=== PATIENT | female | born 1970 | race Caucasian/White ===

== ENCOUNTER 2017-01-16 10:41 | Emergency (ER) | payer BC ==
[2017-01-16 11:02] LABS: BASOPHILS 0.4 % (0.0-2.0); EOSINOPHILS 0.7 % (0.0-6.0); HEMATOCRIT 40.3 % (36.0-48.0); LYMPHOCYTES 30.8 % (20.0-40.0); LYMPHOCYTES# 1.5 X 10^3uL (0.8-3.8); MEAN CELL VOLUME 92.4 fL (80.0-100.0); MEAN CORPUS. HGB CONCENTRATION 34.8 g/dL (32.0-36.0); MEAN CORPUSCULAR HEMOGLOBIN 32.2 pg (29.0-35.0); MEAN PLATELET VOLUME 7.8 fL (7.4-10.4); MONOCYTES# 0.3 X 10^3uL (0.2-1.0); NEUTROPHILS 62.1 % (54.0-75.0); PLATELET COUNT 206 X 10^3uL (130-440); RED BLOOD COUNT 4.36 X 10^6uL (4.20-6.10); RED CELL DISTRIBUTION WIDTH 12.2 % (11.5-14.5); WHITE BLOOD COUNT 4.8 X 10^3uL (3.9-10.7)
--- NOTE | 2017-01-16 11:12 | CT REPORT ---
HISTORY: Word finding difficulties. Stroke like symptoms. COMPARISON: None. TECHNIQUE: Axial non-contrast images obtained from skull vertex through foramen magnum. Dose reduction technique was utilized. FINDINGS: There is no significant cerebral atrophy and ventricular size are normal. There is been a prior left occipital craniotomy, with focal volume loss in the left cerebellar hemisphere. No mass, acute infarc t, or hemorrhage is demonstrated. There are no extra-axial fluid collections are visualized paranasal sinuses are unremarkable. IMPRESSION: 1. No acute infarct is demonstrated and no intracranial hemorrhage. 2. Left occipital craniotomy, with focal volume loss/resection of the lateral left cerebellar hemisph ere. Final Electronic Signature: This report was electronically signed by Pablo Felix MD on 01/16/2017 11:10 AM. rafael /
[2017-01-16 11:14] LABS: BLOOD UREA NITROGEN 15 mg/dL (7-17); CALCIUM 9.8 mg/dL (8.4-10.2); CHLORIDE 109 mmol/L (98-107); EST GLOMERULAR FILTRATION RATE > 60 mL/min; GLUCOSE 107 mg/dL (70-100); POTASSIUM 3.2 mmol/L (3.5-5.1); SODIUM 143 mmol/L (137-145)
[2017-01-16] MEDS ORDERED: FOSPHENYTOIN SODIUM 500 MG/10 ML VIAL ONE ×2 (11:21)
[2017-01-16] MEDS ORDERED: NORMAL SALINE 100 ML IV ONE (11:21)
[2017-01-16 11:26] LABS: INR 0.9
--- NOTE | 2017-01-16 12:01 | ER NURSING DOCUMENTATION ---
Nurse's Notes [facility] Name:Pau Linton Age:46 yrs Sex:Female :1970 Arrival Date:01/16/2017 Time:10:41 BedTrauma-A Private MD: Diagnosis:Dysphagia from CVA Presentation: 01/16 10:48 Acuity: [place] 2 tg 11:32 Presenting complaint: Patient states: Pt appears anxious, hyperventilating, unable to tg speak, gestures to her significant other that she wanted a piece of candy. Sig other reports that pt has low blood sugar and candy sometimes helps. Sig other also reports that pt had a possible seizure and was having difficulty speaking while he was driving prior to arrival . Pt also had a brain tumor surgically removed. Transition of care: patient was not received from another setting of care. 11:32 Method Of Arrival: Private Vehicle tg Triage Assessment: 11:00 General: Appears distressed, Behavior is anxious. Pain: Denies pain. EENT:. Neuro: tg Level of Consciousness is awake, alert, Oriented to person, place, time, event, Moves all extremities. Gait is steady, Speech with expressive aphasia noted, Facial symmetry appears normal, Pupils are non-reactive. Cardiovascular: Capillary refill < 3 seconds. Respiratory: Respiratory effort is labored, Respiratory pattern is hyperventilation. Derm: Skin is pink, warm & dry. Historical: - Allergies: No known drug Allergies; - Home Meds: 1. None - PMHx: brain tumor; low blood sugar; - Tetanus: < 10 years. - Ebola Screening: : Patient negative for fever greater than or equal to 101.5 degrees Fahrenheit, and additional compatible Ebola Virus Disease symptoms. Patient denies exposure to infectious person. Patient denies travel to an Ebola-affected area in the 21 days before illness onset. No symptoms or risks identified at this time. . - Immunization history: Flu Vaccine < 1 year. - Social history: Smoking status: Patient states former smoker of tobacco. Screenin:29 Infectious Disease Risk Unable to Obtain. Abuse screen: Unable to Obtain. Nutritional tg screening: No deficits noted. Assessment: 11:28 Reassessment: Pt seems very anxious, her panic level rises and falls moment to moment. tg At her best, pt is able to speak clearly and slowly. At her worst, she is stuttering, gesturing, and crying, breathing at 50+ per minute. . See Triage Assessment done by same RN. Vital Signs: 10:42 BP 118 / 71 (auto/); tg 10:46 Pulse 82 MON; Resp 20; Pulse Ox 99% ; tg 10:46 Temp 99(TE); Weight 63.5 kg (R); Height 5 ft. 7 in. (170.18 cm); Pain 0/10; tg 11:11 BP 140 / 80 (auto/); tg 11:11 Pulse 108 MON; Resp 33; Pulse Ox 99% ; tg 11:30 BP 118 / 84 (auto/); tg 11:31 Pulse 85 MON; Resp 37; Pulse Ox 98% ; tg 10:46 Body Mass Index 21.93 (63.50 kg, 170.18 cm) tg NIH Stroke Scale Scores: 11:19 NIHSS Score: 2 tg ED Course: 10:45 Inserted peripheral IV: 20 gauge saline lock: 20 gauge in left antecubital area and nf blood collected. 10:46 Patient arrived in ED. dp 10:47 Oscar Mandel MD is Attending Physician. jm 10:48 Triage completed. tg 10:52 Valuables Remains with patient. Door closed. Noise minimized. Lights dimmed. Moved to private room. Verbal reassurance given. Warm blanket given. Pillow given. 10:[address] hz 11:03 Patient [address] back from [address]. hz 11:08 Fito Morales, LYRIC is Primary Nurse. tg 11:46 EKG attached nf Administered Medications: 11:17 Drug: Cerebyx 1 grams; Route: IVPB; Site: left antecubital; lpr 11:53 Follow up: Response: No adverse reaction; IV Status: Completed infusion; IV Intake: tg 100ml 11:52 Drug: Zofran 8 mg; {Note: by LYRIC Collins for Med Evac.} Route: IVP; Infused Over: 2 lpr mins; Site: left antecubital; 11:53 Follow up: Response: Medication administered at discharge. tg Point of Care Testing: Blood Glucose: 10:45 Blood Glucose: 103 mg/dL; nf Ranges: Intake: 11:53 IV: 100ml; Total: 100ml. tg Outcome: 11:46 ER care complete, transfer ordered by . jm 12:00 Patient left the ED. nf 12:00 Transferred: Patient will be transferred to: [facility]. Facility tg Acceptance Time: January 16, 2017 at 11:40 Patient's face sheet was faxed to accepting facility. Face Sheet included patient's name, address, age, gender, contact information and insurance information. Patient will be transported by: [facility] Helicopter. Report called to: LYRIC Chandler charge nurse in [facility] ED 12:00 Condition: unchanged 12:00 Discharge Assessment: Patient awake and alert. 12:00 Instructed on need for transfer NIH Stroke Scale - NIH Stroke Score Date: 01/16/2017 Time: 11:19 Total Score = 2 1a. Level of Consciousness (LOC) - 0(Alert) 1b. Level of Consciousness (LOC) (Year & Age) - 0(Both) 1c. LOC Commands (Open & Closes Eyes/Solar Installation Supervisor) - 0(Both) 2. Best Gaze (Lateral Gaze Paresis) - 0(Normal) 3. Visual Field Loss - 0(No visual loss) 4. Facial Palsy - 0(Normal) 5a. Left Arm: Motor (10-second hold) - 0(No drift) 5b. Right Arm: Motor (10-second hold) - 0(No drift) 6a. Left Leg: Motor (5-second hold ? always test supine) - 0(No drift) 6b. Right Leg: Motor (5-second hold ? always test supine) - 0(No drift) 7. Limb Ataxia (finger/nose & heel/carrera ? test with eyes open) - 0(Absent) 8. Sensory Loss (pinprick arms/legs/face) - 0(Normal) 9. Best Language: Aphasia (description/naming/reading) - 1(Mild to moderate aphasia) 10. Dysarthria (speech clarity ? read or repeat words) - 1(Mild to Moderate) 11. Extinction and Inattention (visual/tactile/auditory/spatial/personal) - 0(No abnormality) Initials: tg Signatures: Fito Morales RN RN tg Friel, Nicole, RN RN nf Meyer, John, MD MD jm Roberts, Leslie, RN RN lpr Abbott, Laura lea Zolnowski, Shyanne Navarro
--- NOTE | 2017-01-16 12:01 | ER PHYSICIAN DOCUMENTATION ---
Physician Documentation [facility] Name:Pau Linton Age:46 yrs Sex:Female :1970 Arrival Date:01/16/2017 Time:10:41 BedTrauma-A Private MD: Oscar Dean Disposition: 01/16/17 11:46 Transfer ordered to [facility]. Diagnosis is Dysphagia from CVA. - Reason for transfer: Specialty. - Accepting physician is Dr. Kolb. - Condition is Serious. - Problem is new. - Symptoms are unchanged. COBRA Form completed? Yes Transfer - Mode of Transportation Helicopter HPI: 01/16 11:28 This 46 yrs old Female presents to ER with complaints of Neuro sx. serena 11:28 The patient presents to the emergency department with a speech or higher order brain jm function problem, aphasia, that is moderate. Onset: The symptom(s)/episode began/occurred just prior to arrival, 30 minute(s) ago. Context: occurred while the patient was driving . Associated signs and symptoms: Pertinent negatives: double vision, visual field changes. Severity of symptoms: in the emergency department the symptoms have improved mildly. Current symptoms: word finding troubles. R arm weakness (improving). Risk factors for stroke or transient ischemic attack: hx of brain tumor. The patient has not experienced similar symptoms in the past. The patient has not recently seen a physician. Pt here after she was driving and could not find words. Her R arm was tingling and weak as well. This part has improved but her speech is still troubled. 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 . Historical: - Allergies: No known drug Allergies; - Home Meds: 1. None - PMHx: brain tumor; low blood sugar; - Tetanus: < 10 years. - Ebola Screening: : Patient negative for fever greater than or equal to 101.5 degrees Fahrenheit, and additional compatible Ebola Virus Disease symptoms. Patient denies exposure to infectious person. Patient denies travel to an Ebola-affected area in the 21 days before illness onset. No symptoms or risks identified at this time. . - Immunization history: Flu Vaccine < 1 year. - Social history: Smoking status: Patient states former smoker of tobacco. ROS: 11:31 Constitutional: Negative for fever. jm 11:31 ENT: Negative for rhinorrhea, sinus congestion, sinus pain, sore throat. 11:31 Cardiovascular: Negative for chest pain. 11:31 Respiratory: Negative for cough, shortness of breath. 11:31 Abdomen/GI: Negative for abdominal pain, nausea, vomiting. 11:31 MS/extremity: Positive for paresthesias. 11:31 Skin: Negative for swelling. 11:31 Neuro: Positive for speech changes, weakness. 11:31 Psych: Negative for anxiety, depression. 11:31 All other systems are negative. Exam: 11:33 Constitutional: The patient appears alert, awake. 11:33 Eyes: Pupils: equal, round, and reactive to light and accomodation, Extraocular movements: intact throughout. 11:33 ENT: Mouth: is normal, Voice: is normal. 11:33 Neck: Thyroid: appears normal, Trachea: is midline with no obvious abnormalities. 11:33 Cardiovascular: Rate: normal, Rhythm: regular. 11:33 Respiratory: the patient does not display signs of respiratory distress, Respirations: normal. 11:33 Abdomen/GI: Bowel sounds: normal, Palpation: abdomen is soft and non-tender. 11:33 Musculoskeletal/extremity: Pulses: are normal with no appreciated deficits, Sensation intact. 11:33 Neuro: Mentation: is normal, Memory: 11:33 Psych: Behavior/mood is pleasant, cooperative, anxious, Oriented to person, place, time. Vital Signs: 10:42 BP 118 / 71 (auto/); tg 10:46 Pulse 82 MON; Resp 20; Pulse Ox 99% ; tg 10:46 Temp 99(TE); Weight 63.5 kg (R); Height 5 ft. 7 in. (170.18 cm); Pain 0/10; tg 11:11 BP 140 / 80 (auto/); tg 11:11 Pulse 108 MON; Resp 33; Pulse Ox 99% ; tg 11:30 BP 118 / 84 (auto/); tg 11:31 Pulse 85 MON; Resp 37; Pulse Ox 98% ; tg 10:46 Body Mass Index 21.93 (63.50 kg, 170.18 cm) tg NIH Stroke Scale Scores: 11:19 NIHSS Score: 2 tg MDM: 10:47 Patient medically screened. 11:35 Neurological re-evaluation: all normal except: speech problems. The patient was last jm known to be well at January 16, 2017 at 10:30. Data reviewed: vital signs, nurses notes, lab test result(s), EKG, radiologic studies, and as a result, I will *Transfer Patient. Test interpretation: by ED physician or midlevel provider: ECG. Counseling: I had a detailed discussion with the patient and/or guardian regarding: the historical points, exam findings, and any diagnostic results supporting the discharge/admit diagnosis, lab results, radiology results, the need to transfer to another facility, for higher level of care, [facility] does not immediately have the required specialist. ECG:. Physician consultation: Dr Kolb was called at 11:25, was contacted at 11:30. ED course: Pt w mildly improving sx. NIHSS is 2 (word finding issues). I explained risks benefits and alternatives of giving TPA to this pt, after discussion, we have decided not to give it at this time. Pt taken to [place] by [facility] janelle. . 11:46 EKG attached 01/16 11:09 Order name: CBC AUTO DIF, MDIF/RMOR IF IND; Complete Time: 11:46 EDMI 01/16 11:28 Order name: PROTIME/INR; Complete Time: 11:46 EDMI 01/16 11:34 Order name: BASIC METABOLIC PANEL; Complete Time: 11:46 [facility] 01/16 11:15 Order name: CAT SCAN; HEAD W/O CON [id number]; Complete Time: 11:23 [facility] 01/16 10:51 Order name: 12-lead EKG; Complete Time: 11:20 01/16 10:51 Order name: Continuous Cardiac Monitoring; Complete Time: 11: 01/16 10:51 Order name: I & O; Complete Time: 11: 01/16 10:51 Order name: IV saline lock X2; Complete Time: 11:19 01/16 10:51 Order name: NIH Stroke Scale; Complete Time: 11: 01/16 10:51 Order name: NPO; Complete Time: : 01/16 10:51 Order name: Pulse Ox Continuous; Complete Time: 11: 01/16 10:51 Order name: Stroke Team Activation Overhead; Complete Time: 11:19 nf EC:35 Rhythm is regular. QRS [place] is Normal. [place] interval is normal. QRS interval is normal. jm QT interval is normal. No Q waves. T waves are Normal. No ST changes noted. Dispensed Medications: 11:17 Drug: Cerebyx 1 grams; Route: IVPB; Site: left antecubital; lpr 11:53 Follow up: Response: No adverse reaction; IV Status: Completed infusion; IV Intake: tg 100ml 11:52 Drug: Zofran 8 mg; {Note: by LYRIC Collins for Med Evac.} Route: IVP; Infused Over: 2 lpr mins; Site: left antecubital; 11:53 Follow up: Response: Medication administered at discharge. Point of Care Testing: Blood Glucose: 10:45 Blood Glucose: 103 mg/dL; nf Ranges: Critical Glucose Levels:Adult <50 mg/dl or >400 mg/dl <40 mg/dl or >180 mg/dl NIH Stroke Scale - NIH Stroke Score Date: 01/16/2017 Time: 11:19 Total Score = 2 1a. Level of Consciousness (LOC) - 0(Alert) 1b. Level of Consciousness (LOC) (Year & Age) - 0(Both) 1c. LOC Commands (Open & Closes Eyes/Buffer Copper) - 0(Both) 2. Best Gaze (Lateral Gaze Paresis) - 0(Normal) 3. Visual Field Loss - 0(No visual loss) 4. Facial Palsy - 0(Normal) 5a. Left Arm: Motor (10-second hold) - 0(No drift) 5b. Right Arm: Motor (10-second hold) - 0(No drift) 6a. Left Leg: Motor (5-second hold ? always test supine) - 0(No drift) 6b. Right Leg: Motor (5-second hold ? always test supine) - 0(No drift) 7. Limb Ataxia (finger/nose & heel/carrera ? test with eyes open) - 0(Absent) 8. Sensory Loss (pinprick arms/legs/face) - 0(Normal) 9. Best Language: Aphasia (description/naming/reading) - 1(Mild to moderate aphasia) 10. Dysarthria (speech clarity ? read or repeat words) - 1(Mild to Moderate) 11. Extinction and Inattention (visual/tactile/auditory/spatial/personal) - 0(No abnormality) Initials: Signatures: Fito Morales RN RN Rosalba Galo RN RN nf Meyer, John, MD MD jm Roberts, Leslie, RN RN lpr
[2017-01-16] MEDS ORDERED: ONDANSETRON HCL 4 MG/2 ML VIAL ONE (12:07)
== END 2017-01-16 12:00 | disposition short-term general hospital (02) ==
LOC: ER 10:41
DX: I63.9 Cerebral infarction, unspecified (principal); R47.01 Aphasia; R29.702 NIHSS score 2; Z86.03 Personal history of neoplasm of uncertain behavior; Z98.890 Other specified postprocedural states; E16.2 Hypoglycemia, unspecified
CPT/HCPCS: 70450; 80048; 85025; 85610; 96365; 96375; 99285; J2405